=== PATIENT | female | born 2000 | race Caucasian/White ===

== ENCOUNTER 2020-03-09 14:25 | Outpatient (REF) | payer MEDICAID, SELFPAY | END 2020-03-09 14:26 | disposition home or self-care (01) | LOC: HO.LAB 14:25 | PROVIDERS: Visit Provider Internal Medicine | DX: Z20.828 Contact with and (suspected) exposure to other viral communicable diseases (principal) | CPT/HCPCS: 87635 ==

== ENCOUNTER 2020-04-05 08:48 | Outpatient (REF) | payer MEDICAID, SELFPAY | END 2020-04-05 08:49 | disposition home or self-care (01) | LOC: HO.LAB 08:48 | PROVIDERS: Visit Provider Internal Medicine | DX: Z20.828 Contact with and (suspected) exposure to other viral communicable diseases (principal) | CPT/HCPCS: C9803; U0003 ==